=== PATIENT | female | born 1930 | race Caucasian/White ===

== ENCOUNTER 2020-10-14 08:50 | Outpatient (CLI) | payer MEDICARE | END 2020-10-14 08:51 | disposition home or self-care (01) | LOC: CSHMRI 08:50 | PROVIDERS: ATTEND Orthopaedic Surgery | DX: M17.12 Unilateral primary osteoarthritis, left knee (principal); S83.232A Complex tear of medial meniscus, current injury, left knee, initial encounter; M24.19 Other articular cartilage disorders, other specified site; M84.452A Pathological fracture, left femur, initial encounter for fracture; M25.462 Effusion, left knee ==

== ENCOUNTER 2020-10-28 12:46 | Outpatient (CLI) | payer MEDICARE | END 2020-10-28 12:47 | disposition home or self-care (01) | LOC: CSHMAMMO 12:46 | PROVIDERS: ATTEND Internal Medicine | DX: Z12.31 Encounter for screening mammogram for malignant neoplasm of breast (principal) | CPT/HCPCS: 77063; 77067 ==

== ENCOUNTER 2020-11-20 17:58 | Emergency (ER) | payer MEDICARE ==
[2020-11-20] MEDS ORDERED: Magnesium Citrate 300 ML BOT ONE (19:20)
== END 2020-11-20 20:38 | disposition home or self-care (01) ==
LOC: CSHERS 17:58
DX: K59.00 Constipation, unspecified (principal); I25.10 Atherosclerotic heart disease of native coronary artery without angina pectoris
CPT/HCPCS: 99283